=== PATIENT | male | born 1980 | race Caucasian/White ===

== ENCOUNTER 2017-03-08 17:40 | Emergency (ER) | payer SELFPAY ==
--- NOTE | 2017-03-08 19:01 | UC ---
UC General HPI - HPI Summary HPI Summary: muscle and body acute 2 people who here with him 10 days ago got lyme disease and he is afraid he may have it as well - History of Current Complaint Hx Obtained From: Patient Onset/Duration: Sudden Onset, Lasting Days, Still Present Timing: Constant Onset Severity: Moderate Current Severity: Moderate <Francisca Rios - Last Filed: 03/10/17 17:00> <Kelly Anguiano - Last Filed: 03/10/17 18:41> - History of Current Complaint Chief Complaint: [facility] Stated Complaint: MUSCLE ACHES CHILLS Time Seen by Provider: 03/08/17 19:00 - Allergy/Home Medications Allergies/Adverse Reactions: Allergies Allergy/AdvReac Type Severity Reaction Status Date / Time No Known Allergies Allergy Verified 05/30/15 08:41 PMH/Surg Hx/FS Hx/Imm Hx Previously Healthy: Yes - Surgical History Surgical History: None - Family History Known Family History: Positive: None - Social History Occupation: Employed Full-time Lives: With Family Alcohol Use: Rare Substance Use Type: None Smoking Status (MU): Never Smoked Tobacco <Francisca Rios - Last Filed: 03/10/17 17:00> Review of Systems Constitutional: Negative, Chills, Fatigue Skin: Negative Eyes: Negative ENT: Negative Respiratory: Negative Cardiovascular: Negative Gastrointestinal: Negative Genitourinary: Negative Motor: Negative Neurovascular: Negative Musculoskeletal: Arthralgia, Myalgia Neurological: Negative Psychological: Negative All Other Systems Reviewed And Are Negative: Yes <Francisca Rios - Last Filed: 03/10/17 17:00> Physical Exam Triage Information Reviewed: Yes Appearance: Well-Nourished, Ill-Appearing - mild, Pain Distress Vital Signs: Initial Vital Signs Temp 98 F 03/08/17 17:41 Pulse 99 03/08/17 17:41 Resp 16 03/08/17 17:41 Pulse Ox 100 03/08/17 17:41 Vital Signs Reviewed: Yes Eye Exam: Normal Eyes: Positive: Conjunctiva Clear ENT Exam: Normal ENT: Positive: Normal ENT inspection, Hearing grossly normal, Pharynx normal, TMs normal. Negative: Nasal congestion, Nasal drainage, Trismus, Muffled/ hoarse voice Dental Exam: Normal Neck exam: Normal Neck: Positive: Supple, Nontender, No Lymphadenopathy Respiratory Exam: Normal Respiratory: Positive: Chest non-tender, Lungs clear, Normal breath sounds, No respiratory distress, No accessory muscle use Cardiovascular Exam: Normal Cardiovascular: Positive: RRR, No Murmur, Pulses Normal, Brisk Capillary Refill Musculoskeletal Exam: Normal Musculoskeletal: Positive: Strength Intact, ROM Intact, No Edema Neurological Exam: Normal Neurological: Positive: Alert, Muscle Tone Normal Psychological Exam: Normal Skin Exam: Normal <Francisca Rios - Last Filed: 03/10/17 17:00> Vital Signs: Initial Vital Signs Temp 98 F 03/08/17 17:41 Pulse 99 03/08/17 17:41 Resp 16 03/08/17 17:41 Pulse Ox 100 03/08/17 17:41 <Kelly Anguiano - Last Filed: 03/10/17 18:41> Course/Dx - Course Course Of Treatment: Concern for Lyme arthralfia, lab stuides, start Doxy, follow with pcp - Differential Dx - Multi-Symptom Differential Diagnoses: Other - viral illness, fatigue, Lyme Provider Diagnoses: Lyme arthralgia <Francisca Rios - Last Filed: 03/10/17 17:00> Discharge <Francisca Rios - Last Filed: 03/10/17 17:00> <Kelly Anguiano - Last Filed: 03/10/17 18:41> - Discharge Plan Condition: Stable Disposition: HOME Prescriptions: DOXYcycline CAP(*) [DOXYcycline 100MG CAP(*)] 100 mg PO BID #42 cap Patient Education Materials: Lyme Disease (ED), Tick Bite (ED) Referrals: Shawn Chopra MD [Primary Care Provider] - 2 Weeks Attestation Statement User Type: Provider - I was available for consult. This patient was seen by the MICKEY. The patient was not presented to, seen by, or examined by me. -Can <Kelly Anguiano - Last Filed: 03/10/17 18:41>
[2017-03-09 11:02] LABS: Hematocrit 49 % (42-52); Mean Corpuscular HGB Conc 33 g/dl (31-36); Mean Corpuscular Hemoglobin 29 pg (27-31); Mean Corpuscular Volume 88 fL (80-94); Mean Platelet Volume 12 um3 (7.4-10.4); Red Blood Count 5.54 10^6/ul (4.0-5.4); Red Cell Distribution Width 14 % (10.5-15)
== END 2017-03-08 19:40 | disposition home or self-care (01) ==
LOC: UCEAST 17:40
DX: A69.23 Arthritis due to Lyme disease (principal)
CPT/HCPCS: 36415; 85025; 86618; 99211; G0463

== ENCOUNTER 2017-03-14 09:44 | Emergency (ER) | payer BC ==
[2017-03-14 09:50] VITALS: BP 124/74
--- NOTE | 2017-03-14 17:37 | ED ---
HPI Febrile Illness - HPI Summary HPI Summary: Patient presents to ED with CC of fever intermittently x 1 week with joint pains , aches, neck pain and [place]. Denies sweats or chills. No known tick bite. He was seen at [facility] and given 3 weeks doxycycline. Today, he notes to a rash on the inside of his leg which has not spread but is 6x6 circular with central clearing resembling bulls eye rash. Denies neurological symptoms. Pain is 4/10 , constant and located diffusely. - History of Current Complaint Chief Complaint: EDFever Time Seen by Provider: 03/14/17 11:09 Hx Obtained From: Patient Timing: Constant Initial Severity: Moderate Current Severity: Moderate Pain Intensity: 4 Pain Scale Used: 0-10 Numeric Aggravating Factors: Nothing Alleviating Factors: Nothing Associated Signs and Symptoms: Headache, Joint Pain, Myalgia - Risk Factors Pseudomonas Risk Factors: Negative Serious Bacterial Infection Risk Factors: Negative - Allergy/Home Medications Allergies/Adverse Reactions: Allergies Allergy/AdvReac Type Severity Reaction Status Date / Time No Known Allergies Allergy Verified 05/30/15 08:41 PMH/Surg Hx/FS Hx/Imm Hx Previously Healthy: Yes - Immunization History Hx Pertussis Vaccination: No Immunizations Up to Date: Unable to Obtain/Confirm Infectious Disease History: No Infectious Disease History: Denies: Hx Clostridium Difficile, Hx Hepatitis, Hx Human Immunodeficiency Virus (HIV), Hx of Known/Suspected MRSA, Hx Shingles, Hx Tuberculosis, Hx Known/ Suspected VRE, Hx Known/Suspected VRSA, History Other Infectious Disease, Traveled Outside the [place] in Last 30 Days - Family History Known Family History: Positive: None - Social History Occupation: Employed Full-time Lives: With Family Alcohol Use: Rare Hx Substance Use: No Substance Use Type: Reports: None Hx Tobacco Use: No Smoking Status (MU): Never Smoked Tobacco Have You Chewed or Dipped Tobacco in the LAST YEAR: No Review of Systems Positive: Fever, Fatigue Eyes: Negative Cardiovascular: Negative Respiratory: Negative Positive: no symptoms reported, see HPI Positive: Arthralgia, Myalgia Positive: Other - erythematous rash with central clearing in the right inner thigh Neurological: Negative Psychological: Normal All Other Systems Reviewed And Are Negative: Yes Physical Exam Triage Information Reviewed: Yes Vital Signs On Initial Exam: Initial Vitals Temp Pulse Resp BP Pulse Ox 97.8 F 84 16 124/74 95 03/14/17 09:48 03/14/17 09:48 03/14/17 09:48 03/14/17 09:48 03/14/17 09:48 Vital Signs Reviewed: Yes Appearance: Positive: Well-Appearing, Well-Nourished Skin: Positive: Warm, Skin Color Reflects Adequate Perfusion, Other - erythematous rash with central clearing in the right inner thigh Head/Face: Positive: Normal Head/Face Inspection Eyes: Positive: EOMI, SILVANO, Conjunctiva Clear Respiratory/Lung Sounds: Positive: Clear to Auscultation, Breath Sounds Present Cardiovascular: Positive: Normal, RRR, Pulses are Symmetrical in both Upper and Lower Extremities Abdomen Description: Positive: Nontender, No Organomegaly Neurological: Positive: Sensory/Motor Intact, Alert, Oriented to Person Place, Time Psychiatric: Positive: Normal AVPU Assessment: Alert Diagnostics - Vital Signs Vital Signs Temp Pulse Resp BP Pulse Ox 03/14/17 11:43 97.8 F 03/14/17 09:48 97.8 F 84 16 124/74 95 - Laboratory Lab Statement: Any lab studies that have been ordered have been reviewed, and results considered in the medical decision making process. Course/Dx - Course Course Of Treatment: Patient presents with fever and erythematous rash with central clearing in the right inner thigh. He was placed on doxycycline at [facility] 2 days ago but stopped taking the medication after titers for lyme came back negative. However, today he shows with a new rash. Provider encouraged to restart the course of treatment and not miss a dose. Will not change course of treatment at this point. He is to follow up with Dr. Mcgowan if symptoms persist and he is encouraged to have repeat titers drawn in 1 month by PCP. - Febrile Illness Differential Diagnoses: Cellulitis, [place] Spotted Fever, Viremia - Diagnoses Provider Diagnoses: Lyme disease Discharge - Discharge Plan Condition: Stable Disposition: HOME Patient Education Materials: Lyme Disease (ED) Referrals: Raiza DOWLING,Junito Munoz [Medical Doctor] - Shawn Chopra MD [Primary Care Provider] - Additional Instructions: Approach to prophylaxis : According to the Infectious Diseases Society of [place] (IDSA) guidelines that recommend antibiotic prophylaxis only in patients who meet all of the following criteria: 1. Attached tick identified as an adult or nymphal I. scapularis tick (deer tick). 2. Tick is estimated to have been attached for 36 hours (by degree of engorgement or time of exposure). 3. Prophylaxis is begun within 72 hours of tick removal. Local rate of infection of ticks with B. burgdorferi is 20 percent if attached for over 48 hours (these rates of infection have been shown to occur in parts of [place], parts of the [facility], and parts of [place] and [place]). If you experience a tick and time of attachment is believed to be less than 36 hours, you may remove the tick with head intact and no need for prophylaxis. If over 36 hours, please come into UC. Prophylactic doxycycline is not recommended for ticks attached less than 36 hours.
== END 2017-03-14 11:43 | disposition home or self-care (01) ==
LOC: ED 09:44
DX: A69.20 Lyme disease, unspecified (principal); R51 Headache; M25.50 Pain in unspecified joint
CPT/HCPCS: 99281

== ENCOUNTER 2018-07-22 08:40 | Emergency (ER) | payer BC ==
[2018-07-22 08:50] VITALS: BP 126/84
--- NOTE | 2018-07-22 09:05 | UC ---
Abdominal Pain Male HPI - HPI Summary HPI Summary: Pt presents requesting STD testing. Pt states he has had clear penile discharge x 24 hours. mild dysuria, no hematuria. Pt states his testicles "ache" but states has been "thinking about it." pt denies fevers, chills. no n/v/d. no back pain. Pt denies fevers, chills, rash. Pt had genital wart x 1 - no other STDs. Pt states his partner has other partners. Partner without sx. Pt's medicaitons reviewed this visit - History of Current Complaint Chief Complaint: UCGU Stated Complaint: STD TESTING Time Seen by Provider: 07/22/18 09:02 Hx Obtained From: Patient Onset/Duration: Gradual Onset Timing: Constant Severity Initially: Mild Pain Intensity: 3 - Allergies/Home Medications Allergies/Adverse Reactions: Allergies Allergy/AdvReac Type Severity Reaction Status Date / Time No Known Allergies Allergy Verified 07/22/18 08:50 Home Medications: Home Medications NK [No Home Medications Reported] 07/22/18 [History Confirmed 07/22/18] PMH/Surg Hx/FS Hx/Imm Hx Previously Healthy: Yes - Surgical History Surgical History: None Surgery Procedure, Year, and Place: denies - Family History Known Family History: Positive: None - Social History Occupation: Employed Full-time Alcohol Use: Rare Substance Use Type: None Smoking Status (MU): Never Smoked Tobacco Review of Systems All Other Systems Reviewed And Are Negative: Yes Constitutional: Positive: Negative Skin: Positive: Negative Genitourinary: Positive: Dysuria, Vaginal/Penile Discharge Physical Exam - Summary Physical Exam Summary: Vital Signs Reviewed: Yes A+Ox3, no distress Eyes: Conjunctiva Clear, SILVANO. EOM intact and full ENT: Hearing grossly normal TM x 2 clear, mmoist, uvula midline, no exudate, no erythema Neck: Positive: Supple Respiratory: Positive: No respiratory distress, No accessory muscle use + CTA throughout no w/r Cardiovascular: RRR nl s1, s2 no m/r CBT <2 sec abd soft + BS nt/nd no guarding, no distension : RN at bedside, chaparone testes barak b/l no skin changes or lesions scant, thin clear penile discharge no pain with palp testicles b/l no pain with palption of epidydmis, no hernia Musculoskeletal Exam: PONCE x 4 without difficulty Strength Intact, ROM Intact Neurological: Positive: Alert, + sensation throughout Psychological: Positive: Normal Response To Family Skin: Positive: no rash, no ecchymosis Triage Information Reviewed: Yes Vital Signs: Initial Vital Signs Temp 98.6 F 07/22/18 08:46 Pulse 112 07/22/18 08:46 Resp 18 07/22/18 08:46 BP 126/84 07/22/18 08:46 Pulse Ox 99 07/22/18 08:46 Abd Pain Male Course/Dx - Course Course Of Treatment: Pt requesting STD eval for clear penile discharge ad achiness of testicles. Pt partner with multiple partners. Pt's exam non concerning except scant discharge. counseled pt regarding testing options. Will test GC/ch/trich. hiv, hep, syphillis. will presumptively treat GC/CH. Pt comfortable and in agreement with plan - Differential Dx/Clinical Impression Provider Diagnosis: Penile discharge Discharge - Sign-Out/Discharge Documenting (check all that apply): Patient Departure All imaging exams completed and their final reports reviewed: No Studies - Discharge Plan Condition: Stable Disposition: HOME Patient Education Materials: Sexually Transmitted Diseases (ED), Safe Sex (ED) Referrals: Shawn Chopra MD [Primary Care Provider] - Additional Instructions: You were treated for presumed gonorrhea and chlamydia for presumed infection based on your symptoms. You have been tested for the following infections: In your blood: HIV, hepatitis C, Syphillis In your urine: trichamonas, gonorrhea, chlamydia These results may take up to 1 week to come back. You will receive a call from a care steam conditioner filling if you require additional or different treatment It is recommmend you do not have intercourse or, if you do, wear a condom for a least 7 days to prevent spread of infection to partners If your urine is positive for gonorrohea or chlamydia, you may receive a call from the Department of Health as we are mandated to report to them - Billing Disposition and Condition Condition: STABLE Disposition: Home
[2018-07-22] MEDS ORDERED: cefTRIAXone VIAL(*) 250 MG VIAL IM ONE (09:19)
[2018-07-22] MEDS ORDERED: Azithromycin TAB* 250 MG PO ONE (09:20)
[2018-07-22] MEDS ORDERED: Lidocaine 2% PF * 5 ML VIAL INJ ONE (09:20)
[2018-07-22] MEDS ORDERED: Lidocaine 1%* 5 ML VIAL ONE (09:24)
== END 2018-07-22 09:52 | disposition home or self-care (01) ==
LOC: UCEAST 08:40
DX: R36.9 Urethral discharge, unspecified (principal); Z11.3 Encounter for screening for infections with a predominantly sexual mode of transmission
CPT/HCPCS: 36415; 81003; 86592; 86703; 86803; 87491; 87591; 87661; 96372; 99212; A9270-GY; G0463; J0696

== ENCOUNTER 2018-09-29 08:52 | Emergency (ER) | payer BC ==
[2018-09-29 09:08] VITALS: BP 124/74
[2018-09-29] MEDS ORDERED: Fluorescein Sodium TOPICAL* 1 MG TEST STRIP OPHTHALMIC ONE (10:30)
--- NOTE | 2018-09-29 10:32 | UC ---
Eye Complaint HPI - HPI Summary HPI Summary: denies recent illness although has sick kids at home. denies pain w/ eye movement. does note some eye discharge. - History of Current Complaint Chief Complaint: UCEye Stated Complaint: EYE COMPLAINT Time Seen by Provider: 09/29/18 10:24 Hx Obtained From: Patient Pain Intensity: 0 Pain Scale Used: 0-10 Numeric Aggravating Factor(s): Nothing Alleviating Factor(s): Nothing - Allergies/Home Medications Allergies/Adverse Reactions: Allergies Allergy/AdvReac Type Severity Reaction Status Date / Time No Known Allergies Allergy Verified 09/29/18 09:09 PMH/Surg Hx/FS Hx/Imm Hx Previously Healthy: Yes - Surgical History Surgical History: None Surgery Procedure, Year, and Place: denies - Family History Known Family History: Positive: None - Social History Alcohol Use: Rare Substance Use Type: None Smoking Status (MU): Never Smoked Tobacco Review of Systems All Other Systems Reviewed And Are Negative: Yes Constitutional: Negative: Fever Skin: Negative: Rash Eyes: Positive: Eye Redness - r eye. Negative: Blurred Vision, Diplopia, Photophobia ENT: Negative: Sore Throat, Ear Ache, Sinus Congestion Respiratory: Positive: Negative Cardiovascular: Positive: Negative Neurological: Negative: Headache Physical Exam Triage Information Reviewed: Yes Appearance: Well-Appearing Vital Signs: Initial Vital Signs Temp 98 F 09/29/18 09:06 Pulse 77 09/29/18 09:06 Resp 16 09/29/18 09:06 BP 124/74 09/29/18 09:06 Pulse Ox 100 09/29/18 09:06 Vital Signs Reviewed: Yes Eyes: Positive: Conjunctiva Inflamed, Discharge - clear, Other: - PERRLA , lids unremarkable. ENT: Positive: Pharynx normal, TMs normal Respiratory Exam: Normal Cardiovascular Exam: Normal Skin: Negative: Rashes Eye Complaint Course/Dx - Course Course Of Treatment: R eye redness w/ clear discharge/crusting which started today. No FB/abrasion seen on exam and had PERRLA w/ no lid involvement or pain /w EOM. viral in etiology but will cover for bacterial source. - Differential Dx/Diagnosis Differential Diagnosis/HQI/PQRI: Conjunctivitis Provider Diagnosis: Viral conjunctivitis Discharge - Sign-Out/Discharge Documenting (check all that apply): Patient Departure All imaging exams completed and their final reports reviewed: No Studies - Discharge Plan Condition: Good Disposition: HOME Prescriptions: Erythromycin OPTH OINT* [Erythromycin 0.5% OPTH OINT*] 1 applic RIGHT EYE TID # 1 ophth.oint Patient Education Materials: Conjunctivitis (ED) Referrals: Shawn Chopra MD [Primary Care Provider] - Additional Instructions: If no improvement after 48 hrs please see eye doctor. This could be a viral or bacterial source causing the red eye. Please obtain over the counter eye drops for relief of symptoms. I have prescribed you ointment w/ antibiotic in it as well. any vision changes, pain w/ eye movement or fever : you should see eye doctor. - Billing Disposition and Condition Condition: GOOD Disposition: Home
[2018-09-29] MEDS ORDERED: Tetracaine 0.5% OPTH.SOL 4 ML* 1 DROP BTL RIGHT EYE ONE (10:35)
== END 2018-09-29 11:00 | disposition home or self-care (01) ==
LOC: UCEAST 08:52
DX: B30.9 Viral conjunctivitis, unspecified (principal)
CPT/HCPCS: 99211; A9270-GY; G0463